=== PATIENT | female | born 1960 | race Caucasian/White ===

== ENCOUNTER 2016-06-05 10:39 | Emergency (ER) | payer BC ==
[2016-06-05 10:52] VITALS: BP 110/70; PULSE 18; TEMP 97.7; BMI 26.6
[2016-06-05] MEDS ORDERED: KETOROLAC TROMETHAMINE 60 MG/2 ML VIAL IM ONE (11:30)
[2016-06-05] MEDS ORDERED: KETOROLAC TROMETHAMINE 60 MG/2 ML VIAL ONE (11:33)
--- NOTE | 2016-06-05 11:42 | PDOC ---
History of Present Illness - General Chief Complaint: Pain Stated Complaint: SOB, RIBS PAIN Time Seen by Provider: 06/05/16 11:06 History Source: Patient Exam Limitations: No Limitations - History of Present Illness Initial Comments: 06/05/16 11:39 55 yr female states her lifted her up 3 days ago and she felt a pop to her left rib area. 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 no shortness of breath. Severity: reports: moderate Pain Location: reports: chest Method of Injury: Yes: other (lifted up ) Past History - Past Medical History Allergies/Adverse Reactions: Allergies Allergy/AdvReac Type Severity Reaction Status Date / Time Penicillins Allergy Verified 06/05/16 10:43 Home Medications: Ambulatory Orders Atorvastatin Ca [Lipitor] 40 mg PO 05/15/12 Oxycodone HCl/Acetaminophen [Percocet 5/325 -] 1 combo PO Q6H #12 tablet Cyclobenzaprine HCl [Flexeril 10 mg] 5 mg PO TID PRN #12 tablet 06/05/16 Ibuprofen 600 mg PO TID PRN #21 tablet 06/05/16 Hypercholesterolemia: Yes Thyroid Disease: Yes - Psycho/Social/Smoking Cessation Hx Anxiety: No Suicidal Ideation: No Smoking Status: No Smoking History: Never smoked Have you smoked in the past 12 months: No Number of Cigarettes Smoked Daily: 0 Information on smoking cessation initiated: No Hx Alcohol Use: No Drug/Substance Use Hx: No Substance Use Type: None Trauma Specific PMHX - Complaint Specific PMHX Arthritis: No Back Injury: No Neck Injury: No Hx Sacro Iliac Joint Dysfunction: No Review of Systems - Review of Systems Able to Perform ROS?: Yes Is the patient limited Angolan proficient: No Constitutional: No: Symptoms Reported HEENTM: No: Symptoms Reported Respiratory: No: Symptoms reported Cardiac (ROS): Yes: See HPI *Physical Exam - Vital Signs Last Vital Signs Temp Pulse Resp BP Pulse Ox 97.7 F 18 L 78 H 110/70 99 06/05/16 10:44 06/05/16 10:44 06/05/16 10:44 06/05/16 10:44 06/05/16 10:44 - Physical Exam General Appearance: Yes: Nourished, Appropriately Dressed HEENT: positive: EOMI, ANDERSON Respiratory/Chest: positive: Chest Tender (left rib tenderness under left breast to mid axilary line), Lungs Clear, Normal Breath Sounds Cardiovascular: positive: Regular Rhythm, Regular Rate Gastrointestinal/Abdominal: positive: Normal Bowel Sounds, Soft Musculoskeletal: positive: Normal Inspection Extremity: positive: Normal Capillary Refill, Normal Inspection, Normal Range of Motion Integumentary: positive: Normal Color, Dry, Warm Neurologic: positive: Fully Oriented, Alert, Normal Mood/Affect, Normal Response , Motor Strength 07/13 ED Treatment Course - RADIOLOGY Radiology Studies Ordered: Category Date Time Status CHEST PA & LAT [RAD] Stat Radiology 06/05/16 11:20 Taken RIBS-LEFT SIDE [RAD] Stat Radiology 06/05/16 11:20 Taken Medical Decision Making - Medical Decision Making 06/05/16 11:41 cc: left rib pain will xrayt o r/o fracture toradol for pain 06/05/16 12:04 negative fractures will dc home with NSAIDS muscle relaxants follow up with PMD *DC/Admit/Observation/Transfer Diagnosis at time of Disposition: Muscle strain - Discharge Dispostion Disposition: HOME Condition at time of disposition: Improved - Prescriptions Prescriptions: Cyclobenzaprine HCl [Flexeril 10 mg] 5 mg PO TID PRN #12 tablet PRN Reason: Muscle Spasms Ibuprofen 600 mg PO TID PRN #21 tablet PRN Reason: Pain - Referrals Referrals: Lawrence Perry MD [Primary Care Provider] - Greyson Oliveros MD [Staff Physician] - - Patient Instructions Additional Instructions: APPLY WARM HEATING PAD OR WARM COMPRESSES TO THE AREA EVERY 3-4 HRS FOR 20 MINUTES TAKE THE MUSCLE RELAXANT FOR ANY SPASM TAKE IBUPROFEN FOR PAIN YOU CAN TAKE THEM TOGETHER HOWEVER THE FLEXERIL MAY MAKE YOU SLEEPY FOLLOW WITH THE ORTHOPEDIST OR YOUR PRIMARY CARE IF SYMPTOMS WORSEN
--- NOTE | 2016-06-08 11:53 | EKG ---
Test Reason : Blood Pressure : / mmHG Vent. Rate : 076 BPM Atrial Rate : 076 BPM P-R Int : 128 ms QRS Dur : 074 ms QT Int : 354 ms P-R-T Axes : 070 017 051 degrees QTc Int : 398 ms POOR DATA QUALITY, INTERPRETATION MAY BE ADVERSELY AFFECTED NORMAL SINUS RHYTHM NONSPECIFIC ST AND T WAVE ABNORMALITY ABNORMAL ECG WHEN COMPARED WITH ECG OF 15-MAY-2010 00:06, PREMATURE VENTRICULAR COMPLEXES ARE NO LONGER PRESENT NONSPECIFIC T WAVE ABNORMALITY NOW EVIDENT IN LATERAL LEADS QT HAS SHORTENED Confirmed by TABATHA CORONADO, CHILO ([id number]) on 06/08/2016 11:53:28 AM Referred By: Confirmed By:CHILO MAYS MD
== END 2016-06-05 12:25 | disposition home or self-care (01) ==
LOC: JERFT 10:39
PROC: 3E0233Z Introduction of Anti-inflammatory into Muscle, Percutaneous Approach (ICD-10-PCS; principal; 2016-06-05)
DX: S39.011A Strain of muscle, fascia and tendon of abdomen, initial encounter (principal); X58.XXXA Exposure to other specified factors, initial encounter; Y93.89 Activity, other specified; Y92.9 Unspecified place or not applicable
CPT/HCPCS: 71020-TC; 71101-TC; 93005; 93010; 99281-25

== ENCOUNTER 2018-08-01 12:12 | Emergency (ER) | payer BC ==
[2018-08-01 12:16] VITALS: BP 125/84; PULSE 104; TEMP 97.5; BMI 23.5
--- NOTE | 2018-08-01 12:28 | PDOC ---
History of Present Illness - General Chief Complaint: Sore Throat Stated Complaint: THROAT HURTS Time Seen by Provider: 08/01/18 12:27 History Source: Patient Exam Limitations: No Limitations - History of Present Illness Initial Comments: 08/01/18 12:52 Patient came requesting more amoxicillin. States was seen by Dr. Luevano last week and given amoxicillin 500 mg for one week where she states did not make her feel much better, took one tablet of her 875 mg of amoxicillin yesterday and states cured her. Is here requesting more amoxicillin that's 875 mg because she feels that the higher dosage is what thinks to her problems. Patient denies fever, denies cough, has minimal sore throat pain. Has taken Zyrtec intermittently for seasonal ALLERGIES. No one else at home is sick. Timing/Duration: reports: getting worse Severity: reports: moderate Past History - Travel Traveled outside of the country in the last 30 days: No Close contact w/someone who was outside of country & ill: No - Past Medical History Allergies/Adverse Reactions: Allergies Allergy/AdvReac Type Severity Reaction Status Date / Time Penicillins Allergy Verified 08/01/18 12:16 Home Medications: Ambulatory Orders Atorvastatin Ca [Lipitor] 40 mg PO HS 05/15/12 Cetirizine HCl/Pseudoephedrine [Allergy+Congestion Relf-D Tab] 1 each PO DAILY # 30 tab 08/01/18 COPD: No Hypercholesterolemia: Yes Thyroid Disease: Yes - Suicide/Smoking/Psychosocial Hx Smoking Status: No Smoking History: Never smoked Have you smoked in the past 12 months: No Number of Cigarettes Smoked Daily: 0 Information on smoking cessation initiated: No Hx Alcohol Use: No Drug/Substance Use Hx: No Substance Use Type: None Review of Systems - Review of Systems Able to Perform ROS?: Yes Is the patient limited [place]an proficient: Yes Constitutional: Yes: Symptoms Reported, See HPI, Malaise. No: Chills, Fever HEENTM: Yes: Symptoms Reported, See HPI, Nose Congestion Respiratory: Yes: See HPI, Cough. No: Symptoms reported, Wheezing Musculoskeletal: Yes: Symptoms Reported, See HPI Neurological: Yes: See HPI. No: Symptoms reported All Other Systems: Reviewed and Negative *Physical Exam - Vital Signs Last Vital Signs Temp Pulse Resp BP Pulse Ox 97.5 F L 104 H 18 125/84 98 08/01/18 12:13 08/01/18 12:13 08/01/18 12:13 08/01/18 12:13 08/01/18 12:13 - Physical Exam General Appearance: Yes: Nourished, Appropriately Dressed, Mild Distress. No: Apparent Distress HEENT: positive: ANDERSON, Normal ENT Inspection, Normal Voice, TMs Normal, Pharynx Normal (no redness, swelling, exudate. Some posterior sinus drainage noted at clear), Nasal Congestion, Rhinorrhea. negative: Pharyngeal Erythema, Tonsillar Exudate Neck: positive: Supple. negative: Tender, Lymphadenopathy (R), Lymphadenopathy (L) Respiratory/Chest: positive: Lungs Clear, Normal Breath Sounds. negative: Chest Tender Cardiovascular: positive: Regular Rate (clear) Gastrointestinal/Abdominal: positive: Soft Extremity: positive: Normal Capillary Refill, Normal Inspection, Normal Range of Motion Integumentary: positive: Normal Color, Dry, Warm, Pale Neurologic: positive: service writer advisor II-XII NML intact, Fully Oriented, Alert, Normal Mood/ Affect, Normal Response, Motor Strength 5/5 Progress Note - Progress Note Progress Note: Lengthy discussion given to patient regarding use of antibiotics and need for further treatment. Has been afebrile, completed course of antibiotics for presumed pharyngitis that would've been appropriate treatment for strep pharyngitis. If symptoms are persisting, this is probably indicative of a viral illness rather than a bacterial illness therefore no further antibiotic therapy would be appropriate. Encouraged patient to use conservative measures, continue antihistamines and provided an antihistamine with decongestant to help avoid postnasal drainage causing . Sore throat pain. Encouraged patient to follow up with private physician as needed to discuss further antibiotic therapy if she feels strongly about receiving an additional prescription. *DC/Admit/Observation/Transfer Diagnosis at time of Disposition: Upper respiratory infection, viral - Discharge Dispostion Disposition: HOME Condition at time of disposition: Stable Decision to Admit order: No - Referrals Referrals: Lawrence Perry MD [Primary Care Provider] - - Patient Instructions Printed Discharge Instructions: DI for Viral Upper Respiratory Infection -- Adult Additional Instructions: Rest, drink lots of fluids: Teas, water, soups Saltwater gargles. Consider humidifier in room at night Steamy showers/seem to face break up mucus Avoid contact with allergens, exposure to pollens, close windows on a windy day Lots of handwashing and good hygiene Continue [id number] medications for symptomatic relief- may use allergic eyedrops for itching I Continue antihistamines daily until pollen season is over; Zyrtec, Claritin, Peyton during the daytime and Benadryl at nighttime as will make sleepy Tylenol or Motrin for fever and pain Followup with private physician in one to 2 days as needed Consider following up with an cardiac cath lab manager/amusement or recreation card checker for skin testing and possible allergy shots Return to emergency department for worsened symptoms, fevers, dehydration - Post Discharge Activity Forms/Work/School Notes: Back to Work
== END 2018-08-01 12:58 | disposition home or self-care (01) ==
LOC: JERFT 12:12
DX: J06.9 Acute upper respiratory infection, unspecified (principal); B97.89 Other viral agents as the cause of diseases classified elsewhere; E78.00 Pure hypercholesterolemia, unspecified; E07.9 Disorder of thyroid, unspecified
CPT/HCPCS: 99281-25

== ENCOUNTER 2023-11-02 17:38 | Emergency (ER) | payer BC ==
[2023-11-02 17:45] VITALS: TEMP 98.2; BMI 24.7
[2023-11-02] MEDS ORDERED: FAMOTIDINE 20 MG/50 ML IVPB 20 MG/50 ML MG IVPB ONE (18:16)
[2023-11-02] MEDS ORDERED: MAG HYDROX/AL HYDROX/SIMETH 30 ML UNIT-DOSE CUP ONE (18:16)
[2023-11-02 18:21] LABS: BASO % 0.6 % (0-2.0); EOS % 2.4 % (0-4.5); HEMATOCRIT 31.7 % (32.4-45.2); HEMOGLOBIN 10.8 GM/dL (10.7-15.3); LYMPH % 35.2 % (8-40); MCH 31.7 pg (25.7-33.7); MCHC 33.9 g/dl (32.0-36.0); MEAN CELL VOLUME 93.6 fl (80-96); MEAN PLT VOLUME 9.7 fl (7.5-11.1); MONO % 6.9 % (3.8-10.2); NEUT % 54.9 % (42.8-82.8); PLATELET COUNT 194 10^3/uL (134-434); RBC 3.39 M/mm3 (3.60-5.2); RDW 12.7 % (11.6-15.6); WHITE BLOOD COUNT 4.4 K/mm3 (4.0-10.0)
[2023-11-02] MEDS: FAMOTIDINE 20 MG/50 ML IVPB 20 MG/50 ML MG IVPB ONE (18:29)
[2023-11-02] MEDS: MAG HYDROX/AL HYDROX/SIMETH -MYLANTA- ORAL SUSPENSION PO ONE (18:30)
[2023-11-02 18:38] LABS: POTASSIUM 3.4 mmol/L (3.5-5.1)
[2023-11-02 18:44] LABS: CALCIUM 9.7 mg/dL (8.5-10.1)
[2023-11-02 18:45] LABS: ALBUMIN 3.8 g/dl (3.4-5.0); BLOOD UREA NITROGEN 16.9 mg/dL (7-18)
[2023-11-02 18:48] LABS: BILIRUBIN,TOTAL 0.6 mg/dL (0.2-1); CREATININE 0.9 mg/dL (0.55-1.3); TOT PROT 6.8 g/dl (6.4-8.2)
[2023-11-02 18:53] LABS: N-TERMINAL BNP 91.9 pg/ml (5-125)
[2023-11-02 19:38] VITALS: BP 121/68; PULSE 81; RESP 18
== END 2023-11-02 19:54 | disposition home or self-care (01) ==
LOC: JER 17:38
PROC: 3E033GC Introduction of Other Therapeutic Substance into Peripheral Vein, Percutaneous Approach (ICD-10-PCS; principal; 2023-11-02)
DX: R00.2 Palpitations (principal); R10.13 Epigastric pain; R42 Dizziness and giddiness; R53.1 Weakness
CPT/HCPCS: 36415; 71046-TC-FY; 80053; 83690; 83880; 84439; 84443; 84484; 85025; 93005; 93010; 99285-25